=== PATIENT | male | born 1975 | race Two or more races ===

== ENCOUNTER 2017-03-02 02:12 | Emergency (ER) | payer SELFPAY ==
[~2017-03-02] VITALS: Ht 152.4 cm; Wt 64.6 kg
[2017-03-02] MEDS ORDERED: SODIUM CHLORIDE 0.9% 1,000ML IV ONE (03:00)
[2017-03-02] MEDS ORDERED: SODIUM CHLORIDE FLUSH 10ML SYR IVF ONE (03:00)
[2017-03-02] MEDS ORDERED: ONDANSETRON 2MG/ML, 2ML IVPush ONE (03:00)
[2017-03-02] MEDS ORDERED: MORPHINE SULFATE 4 MG/ML, 1ML IVPush PRN (03:00)
[2017-03-02 03:11] LABS: HEMATOCRIT 47.4 % (39.2-51.8); HEMOGLOBIN 16.3 g/dL (13.7-18.0)
[2017-03-02 03:16] LABS: ASPARTATE AMINO TRANSFERASE 35 U/L (15-37); BLOOD UREA NITROGEN 15 mg/dL (7-18)
[2017-03-02] MEDS ORDERED: MORPHINE SULFATE 4 MG/ML, 1ML ONE (03:40)
[2017-03-02] MEDS ORDERED: ONDANSETRON 2MG/ML, 2ML ONE (03:40)
[2017-03-02 04:13] VITALS: BP 134/78
== END 2017-03-02 04:15 | disposition home or self-care (01) ==
LOC: ED 03:12
DX: N20.0 Calculus of kidney (principal); N23 Unspecified renal colic
CPT/HCPCS: 36415; 74176; 80053; 81003; 83690; 85025; 96361; 96374; 96375; 99285; J2405; J7030

== ENCOUNTER 2017-03-20 10:43 | Emergency (ER) | payer SELFPAY ==
[~2017-03-20] VITALS: Ht 152.4 cm; Wt 64.0 kg
[2017-03-20 10:46] VITALS: BP 142/94
[2017-03-20] MEDS ORDERED: OXYcodone/APAP 5/325MG TABLET ONE (11:40)
[2017-03-20] MEDS ORDERED: KETOROLAC 30 MG/1 ML ONE (11:44)
[2017-03-20] MEDS ORDERED: OXYcodone/APAP 5/325MG TABLET PO ONE (12:00)
[2017-03-20] MEDS ORDERED: KETOROLAC 30 MG/1 ML IM ONE (12:00)
== END 2017-03-20 12:55 | disposition home or self-care (01) ==
LOC: ED 11:15
DX: G89.29 Other chronic pain (principal); M54.16 Radiculopathy, lumbar region; M46.1 Sacroiliitis, not elsewhere classified
CPT/HCPCS: 96372; 99283; J1885; J7512

== ENCOUNTER → 2017-11-13 | Outpatient (CLI) | payer OTHER | END | disposition home or self-care (01) | LOC: RAD 15:53 | PROVIDERS: ATTEND Urology | DX: N20.0 Calculus of kidney (principal) | CPT/HCPCS: 74018 ==